=== PATIENT | female | born 1980 | race Caucasian/White ===

== ENCOUNTER 2017-04-05 12:13 | Emergency (ER) | payer BC ==
--- NOTE | 2017-04-05 13:06 | EDM.PDOC ---
ED HPI GENERAL MEDICAL PROBLEM - General Chief Complaint: Lower Extremity Injury/Pain Stated Complaint: right ankle pain Time Seen by Provider: 04/05/17 12:39 Source of Information: Reports: Patient History Limitations: Reports: No Limitations - History of Present Illness INITIAL COMMENTS - FREE TEXT/NARRATIVE: Patient brought in by private vehicle for evaluation of right lateral ankle pain. Misjudged her step as she stepped off the edge of a deck that is approximately 12-15" off the ground. Rolled ankle. Dane "pop" and felt pain. Denies other injuries. Has not tried to bear weight on affected foot. Foot feels slightly tingly but has no lamberto numbness. right ankle Pain Score (Numeric/FACES): 7 - Related Data Allergies Allergy/AdvReac Type Severity Reaction Status Date / Time No Known Allergies Allergy Verified 04/05/17 12:14 Home Meds: Home Meds Non-Formulary Medication [NF Drug] 1 tab PO DAILY 04/05/17 [History] Past Medical History - Past Surgical History HEENT Surgical History: Reports: Other (See Below) Other HEENT Surgeries/Procedures: wisdom teeth removed GI Surgical History: Reports: Appendectomy, Cholecystectomy Social & Family History - Family History Family Medical History: Noncontributory - Tobacco Use Smoking Status *Q: Never Smoker Second Hand Smoke Exposure: No - Caffeine Use Caffeine Use: Reports: Coffee, Soda - Recreational Drug Use Recreational Drug Use: No Review of Systems - Review of Systems Review Of Systems: ROS reveals no pertinent complaints other than HPI. ED EXAM, GENERAL - Physical Exam Exam: See Below Exam Limited By: No Limitations General Appearance: Alert, WD/WN, No Apparent Distress Eye Exam: Bilateral Eye: EOMI, PERRL Head: Atraumatic, Normocephalic Neck: Supple, Full Range of Motion Respiratory/Chest: No Respiratory Distress Peripheral Pulses: 2+: Posterior Tibial (L), Posterior Tibial (R) Extremities: Normal Capillary Refill, Other (Point tender over lateral malleolus. Mild swelling. No deformity. Able to wiggle toes. Able to move ankle in all directions but did have pain limitation. No focal sensory deficits identified. ) Neurological: Alert, Oriented, Normal Cognition Psychiatric: Normal Affect, Normal Mood Skin Exam: Warm, Dry, Intact, Normal Color, No Rash. No: Ecchymosis, Erythema Course - Vital Signs Last Recorded V/S: Last Vital Signs Temp 37.2 C 04/05/17 12:18 Pulse 83 04/05/17 12:18 Resp 16 04/05/17 12:18 BP 131/76 04/05/17 12:18 Pulse Ox 100 04/05/17 12:18 - Orders/Labs/Meds Orders: Active Orders 24 hr Category Date Time Status Ankle Min 3V Rt [CR] Stat Exams 04/05/17 12:35 Taken - Radiology Interpretation Free Text/Narrative:: Xray confirmed fracture of distal fibula and there appears to be small disruption of adjacent talus. Minimal displacement. - Re-Assessments/Exams Free Text/Narrative Re-Assessment/Exam: 04/05/17 13:30 Splint applied for comfort and protection. Crutches provided. Patient will follow up tomorrow morning at Ortho walk-in clinic at [facility] in [place]. She plans on using Tylenol for pain and currently declines additional medication. Departure - Departure Time of Disposition: 13:04 Disposition: Home, Self-Care 01 Condition: Good Clinical Impression: Fracture of ankle, closed Qualifiers: Encounter type: initial encounter Laterality: right Qualified Code(s): S82.891A - Other fracture of right lower leg, initial encounter for closed fracture - Discharge Information Instructions: Crutch Use, [id number] Forms: ED Department Discharge Additional Instructions: Elevate for comfort. Avoid weight bearing. Follow up tomorrow at Ortho walk-in clinic in [place] as discussed. OK to use Tylenol or ibuprofen for pain. - My Orders Last 24 Hours: My Active Orders 04/05/17 12:35 Ankle Min 3V Rt [CR] Stat - Assessment/Plan Last 24 Hours: My Active Orders 04/05/17 12:35 Ankle Min 3V Rt [CR] Stat
== END 2017-04-05 13:23 | disposition home or self-care (01) ==
LOC: LL.ED 12:13
DX: S82.891A Other fracture of right lower leg, initial encounter for closed fracture (principal); X50.1XXA Overexertion from prolonged static or awkward postures, initial encounter
CPT/HCPCS: 73610-RT; 99283